=== PATIENT | male | born 1945 | race Caucasian/White ===

== ENCOUNTER 2018-03-26 20:08 | Inpatient (IN) | payer MEDICARE, OTHER ==
[2018-03-26 20:41] LABS: BASO # 0.1 10^3/uL (0.0-0.2); BASO % 0.9 % (0.0-1.0); EOS # 0.7 10^3/uL (0.0-0.50); EOS % 6.9 % (0.0-3.0); HEMATOCRIT 44.9 % (42.0-52.0); HEMOGLOBIN 14.3 g/dl (13.5-17.5); IMMATURE GRANULOCYTE % 0.4 % (0-3.0); LYMPH # 2.8 10^3/uL (1.5-4.5); LYMPH % 28.6 % (24.0-44.0); MEAN CORPUSCULAR HEMOGLOBIN 30.7 pg (27.0-33.0); MEAN CORPUSCULAR HGB CONC 31.8 g/dl (32.0-36.5); MEAN CORPUSCULAR VOLUME 96.4 fl (80.0-96.0); MONO # 0.7 10^3/uL (0.0-0.8); NEUTROPHILS # 5.5 10^3/uL (1.8-7.7); NEUTROPHILS % 56.2 % (36.0-66.0); PLATELET COUNT, AUTOMATED 216 10^3/uL (150-450); RED BLOOD COUNT 4.66 10^6/uL (4.30-6.10); WHITE BLOOD COUNT 9.8 10^3/uL (4.0-10.0)
[2018-03-26 20:51] LABS: INR 1.57
[2018-03-26 20:52] LABS: PARTIAL THROMBOPLASTIN TIME 45.5 SECONDS (25.4-37.6)
[2018-03-26 21:16] LABS: ANION GAP 6 MEQ/L (8-16); BLOOD UREA NITROGEN 25 MG/DL (7-18); CALCIUM LEVEL 8.6 MG/DL (8.8-10.2); CARBON DIOXIDE LEVEL 29 MEQ/L (21-32); CHLORIDE LEVEL 105 MEQ/L (98-107); CPK CREATINE PHOSPHOKINASE 78 U/L (39-308); CREATININE FOR GFR 1.37 MG/DL (0.70-1.30); GLOMERULAR FILTRATION RATE 54.1 (>42); GLUCOSE, FASTING 111 MG/DL (70-100); MAGNESIUM LEVEL 1.3 MG/DL (1.8-2.4); MB/CK RELATIVE INDEX 2.44 (< OR =4); POTASSIUM SERUM 4.9 MEQ/L (3.5-5.1); SODIUM LEVEL 140 MEQ/L (136-145); TROPONIN I < 0.02 NG/ML (< 0.10)
[2018-03-26] MEDS: MAGNESIUM OXIDE 400 MG TAB (MAG-OX) PO (22:00)
[2018-03-26] MEDS: MAG SULF 1GM/100ML (MAG RUN) 1 GM in APPROPRIATE DILUENT 1 EA IV (22:00)
[2018-03-27] MEDS ORDERED: ATROPINE SULF 1MG/10ML SYRINGE (J0461) As Ordered (01:08)
[2018-03-27 02:34] LABS: CPK CREATINE PHOSPHOKINASE 73 U/L (39-308); MB/CK RELATIVE INDEX 2.05 (< OR =4); TROPONIN I < 0.02 NG/ML (< 0.10)
[2018-03-27 05:04] LABS: HEMATOCRIT 41.7 % (42.0-52.0); HEMOGLOBIN 13.4 g/dl (13.5-17.5); MEAN CORPUSCULAR HGB CONC 32.1 g/dl (32.0-36.5); MEAN CORPUSCULAR VOLUME 93.5 fl (80.0-96.0); PLATELET COUNT, AUTOMATED 195 10^3/uL (150-450); RED BLOOD COUNT 4.46 10^6/uL (4.30-6.10); RED CELL DISTRIBUTION WIDTH 12.7 % (11.5-14.5); WHITE BLOOD COUNT 9.9 10^3/uL (4.0-10.0)
[2018-03-27 05:28] LABS: ANION GAP 7 MEQ/L (8-16); BLOOD UREA NITROGEN 26 MG/DL (7-18); CALCIUM LEVEL 8.2 MG/DL (8.8-10.2); CARBON DIOXIDE LEVEL 28 MEQ/L (21-32); CHLORIDE LEVEL 107 MEQ/L (98-107); CREATININE FOR GFR 1.41 MG/DL (0.70-1.30); GLOMERULAR FILTRATION RATE 52.3 (>42); GLUCOSE, FASTING 90 MG/DL (70-100); MAGNESIUM LEVEL 1.5 MG/DL (1.8-2.4); POTASSIUM SERUM 4.7 MEQ/L (3.5-5.1); SODIUM LEVEL 142 MEQ/L (136-145)
[2018-03-27] MEDS: MAGNESIUM OXIDE 400 MG TAB (MAG-OX) PO (06:21)
[2018-03-27] MEDS: MAG SULF 1GM/100ML (MAG RUN) 1 GM in APPROPRIATE DILUENT 1 EA IV (06:21)
[2018-03-27] MEDS: LR 1,000 ML IV (07:30)
[2018-03-27] MEDS ORDERED: DEXTROSE 50% 50 ML SYRINGE IV (07:45)
[2018-03-27] MEDS ORDERED: GLUCOSE 4 GM CHEW TABLET PO (07:45)
[2018-03-27] MEDS ORDERED: GLUCAGON FOR INJ 1 MG VIAL (J1610) SC (07:45)
[2018-03-27] MEDS ORDERED: DOPamine 400 MG/500 ML BAG IN D5W (800MCG/ML) (J1265) As Ordered (08:28)
[2018-03-27] MEDS: DOPamine HCL 400 MG in APPROPRIATE DILUENT 1 EA IV (08:39)
[2018-03-27 08:43] LABS: CPK CREATINE PHOSPHOKINASE 79 U/L (39-308); TROPONIN I < 0.02 NG/ML (< 0.10)
[2018-03-27 11:27] LABS: BEDSIDE GLUCOSE 112 MG/DL (83-110)
[2018-03-27] MEDS: OMEGA-3 1000MG CAPSULE PO (11:28)
[2018-03-27] MEDS: ALLOPURINOL 300 MG TAB PO (11:28)
[2018-03-27] MEDS: OMEPRAZOLE 20 MG CAP PO (11:28)
[2018-03-27] MEDS: HumaLOG INSULIN (NovoLOG) PER UNIT SC ×3 (11:34→21:25)
[2018-03-27] MEDS ORDERED: HumaLOG INSULIN (NovoLOG) PER UNIT SC (12:00)
[2018-03-27 15:15] LABS: ANION GAP 7 MEQ/L (8-16); BLOOD UREA NITROGEN 22 MG/DL (7-18); CARBON DIOXIDE LEVEL 28 MEQ/L (21-32); CHLORIDE LEVEL 106 MEQ/L (98-107); CPK CREATINE PHOSPHOKINASE 70 U/L (39-308); CREATININE FOR GFR 1.13 MG/DL (0.70-1.30); GLOMERULAR FILTRATION RATE > 60.0 (>42); GLUCOSE, FASTING 115 MG/DL (70-100); MAGNESIUM LEVEL 1.8 MG/DL (1.8-2.4); MB/CK RELATIVE INDEX 1.86 (< OR =4); POTASSIUM SERUM 4.2 MEQ/L (3.5-5.1); SODIUM LEVEL 141 MEQ/L (136-145); TROPONIN I < 0.02 NG/ML (< 0.10)
[2018-03-27 16:38] LABS: BEDSIDE GLUCOSE 100 MG/DL (83-110)
[2018-03-27 21:09] LABS: BEDSIDE GLUCOSE 122 MG/DL (83-110)
[2018-03-27] MEDS: LATANOPROST 0.005% OPHTH SOLN 2.5 ML OU (21:25)
[2018-03-28 05:05] LABS: HEMATOCRIT 44.8 % (42.0-52.0); HEMOGLOBIN 14.7 g/dl (13.5-17.5); MEAN CORPUSCULAR HEMOGLOBIN 30.7 pg (27.0-33.0); MEAN CORPUSCULAR HGB CONC 32.8 g/dl (32.0-36.5); MEAN CORPUSCULAR VOLUME 93.5 fl (80.0-96.0); PLATELET COUNT, AUTOMATED 186 10^3/uL (150-450); RED BLOOD COUNT 4.79 10^6/uL (4.30-6.10); RED CELL DISTRIBUTION WIDTH 12.5 % (11.5-14.5); WHITE BLOOD COUNT 12.1 10^3/uL (4.0-10.0)
[2018-03-28 05:20] LABS: INR 1.11; PROTHROMBIN TIME 14.4 SECONDS (12.1-14.4)
[2018-03-28 05:24] LABS: MAGNESIUM LEVEL 1.5 MG/DL (1.8-2.4)
[2018-03-28 05:25] LABS: ALBUMIN 3.6 GM/DL (3.2-5.2); ALBUMIN/GLOBULIN RATIO 1.03 (1.00-1.93); ALKALINE PHOSPHATASE 57 U/L (45-117); ALT/SGPT 18 U/L (12-78); ANION GAP 8 MEQ/L (8-16); AST/SGOT 11 U/L (7-37); BILIRUBIN,TOTAL 1.4 MG/DL (0.2-1.0); BLOOD UREA NITROGEN 17 MG/DL (7-18); CALCIUM LEVEL 9.2 MG/DL (8.8-10.2); CARBON DIOXIDE LEVEL 28 MEQ/L (21-32); CHLORIDE LEVEL 104 MEQ/L (98-107); CREATININE FOR GFR 0.97 MG/DL (0.70-1.30); GLOMERULAR FILTRATION RATE > 60.0 (>42); GLUCOSE, FASTING 110 MG/DL (70-100); POTASSIUM SERUM 4.2 MEQ/L (3.5-5.1); SODIUM LEVEL 140 MEQ/L (136-145); TOTAL PROTEIN 7.1 GM/DL (6.4-8.2)
[2018-03-28] MEDS: MAG SULF 1GM/100ML (MAG RUN) 1 GM in APPROPRIATE DILUENT 1 EA IV (06:07)
[2018-03-28] MEDS: HumaLOG INSULIN (NovoLOG) PER UNIT SC ×4 (07:30→20:38)
[2018-03-28] MEDS: OMEGA-3 1000MG CAPSULE PO (09:43)
[2018-03-28] MEDS: OMEPRAZOLE 20 MG CAP PO (09:43)
[2018-03-28] MEDS: ALLOPURINOL 300 MG TAB PO (09:43)
[2018-03-28 12:11] LABS: BEDSIDE GLUCOSE 114 MG/DL (83-110)
[2018-03-28] MEDS: LISINOPRIL 20 MG TAB PO (14:24)
[2018-03-28 17:28] LABS: BEDSIDE GLUCOSE 89 MG/DL (83-110)
[2018-03-28] MEDS: RIVAROXABAN 20 MG TAB (XARELTO) PO (17:58)
[2018-03-28 20:34] LABS: BEDSIDE GLUCOSE 96 MG/DL (83-110)
[2018-03-28] MEDS: LATANOPROST 0.005% OPHTH SOLN 2.5 ML OU (20:40)
[2018-03-29 05:07] LABS: HEMOGLOBIN 14.8 g/dl (13.5-17.5); MEAN CORPUSCULAR HEMOGLOBIN 30.7 pg (27.0-33.0); MEAN CORPUSCULAR HGB CONC 32.9 g/dl (32.0-36.5); MEAN CORPUSCULAR VOLUME 93.4 fl (80.0-96.0); PLATELET COUNT, AUTOMATED 188 10^3/uL (150-450); RED BLOOD COUNT 4.82 10^6/uL (4.30-6.10); RED CELL DISTRIBUTION WIDTH 12.7 % (11.5-14.5)
[2018-03-29 05:19] LABS: INR 1.62; PROTHROMBIN TIME 19.5 SECONDS (12.1-14.4)
[2018-03-29 05:35] LABS: ALBUMIN 3.3 GM/DL (3.2-5.2); ALBUMIN/GLOBULIN RATIO 0.97 (1.00-1.93); ALKALINE PHOSPHATASE 57 U/L (45-117); ALT/SGPT 18 U/L (12-78); ANION GAP 7 MEQ/L (8-16); AST/SGOT 12 U/L (7-37); BILIRUBIN,TOTAL 1.2 MG/DL (0.2-1.0); BLOOD UREA NITROGEN 14 MG/DL (7-18); CALCIUM LEVEL 8.9 MG/DL (8.8-10.2); CARBON DIOXIDE LEVEL 30 MEQ/L (21-32); CHLORIDE LEVEL 105 MEQ/L (98-107); CREATININE FOR GFR 1.13 MG/DL (0.70-1.30); GLOMERULAR FILTRATION RATE > 60.0 (>42); GLUCOSE, FASTING 112 MG/DL (70-100); MAGNESIUM LEVEL 1.7 MG/DL (1.8-2.4); POTASSIUM SERUM 4.2 MEQ/L (3.5-5.1); SODIUM LEVEL 142 MEQ/L (136-145); TOTAL PROTEIN 6.7 GM/DL (6.4-8.2)
[2018-03-29] MEDS: HumaLOG INSULIN (NovoLOG) PER UNIT SC ×4 (07:30→20:35)
[2018-03-29] MEDS: MAG SULF 1GM/100ML (MAG RUN) 1 GM in APPROPRIATE DILUENT 1 EA IV (08:52)
[2018-03-29] MEDS: ALLOPURINOL 300 MG TAB PO (08:53)
[2018-03-29] MEDS: OMEGA-3 1000MG CAPSULE PO (08:53)
[2018-03-29] MEDS: OMEPRAZOLE 20 MG CAP PO (08:53)
[2018-03-29] MEDS: LISINOPRIL 20 MG TAB PO (08:53)
[2018-03-29 12:15] LABS: BEDSIDE GLUCOSE 107 MG/DL (83-110)
[2018-03-29 16:44] LABS: BEDSIDE GLUCOSE 97 MG/DL (83-110)
[2018-03-29] MEDS: RIVAROXABAN 20 MG TAB (XARELTO) PO (17:21)
[2018-03-29] MEDS: LATANOPROST 0.005% OPHTH SOLN 2.5 ML OU (20:35)
[2018-03-29 20:37] LABS: BEDSIDE GLUCOSE 116 MG/DL (83-110)
[2018-03-30 05:57] LABS: HEMATOCRIT 46.4 % (42.0-52.0); HEMOGLOBIN 15.2 g/dl (13.5-17.5); MEAN CORPUSCULAR HEMOGLOBIN 30.6 pg (27.0-33.0); MEAN CORPUSCULAR HGB CONC 32.8 g/dl (32.0-36.5); MEAN CORPUSCULAR VOLUME 93.4 fl (80.0-96.0); PLATELET COUNT, AUTOMATED 215 10^3/uL (150-450); RED BLOOD COUNT 4.97 10^6/uL (4.30-6.10); RED CELL DISTRIBUTION WIDTH 12.8 % (11.5-14.5)
[2018-03-30 06:14] LABS: INR 1.59; PROTHROMBIN TIME 19.2 SECONDS (12.1-14.4)
[2018-03-30 06:23] LABS: ALBUMIN 3.4 GM/DL (3.2-5.2); ALBUMIN/GLOBULIN RATIO 0.97 (1.00-1.93); ALKALINE PHOSPHATASE 60 U/L (45-117); ALT/SGPT 21 U/L (12-78); ANION GAP 7 MEQ/L (8-16); AST/SGOT 12 U/L (7-37); BLOOD UREA NITROGEN 15 MG/DL (7-18); CALCIUM LEVEL 8.9 MG/DL (8.8-10.2); CARBON DIOXIDE LEVEL 26 MEQ/L (21-32); CHLORIDE LEVEL 107 MEQ/L (98-107); CREATININE FOR GFR 1.11 MG/DL (0.70-1.30); GLOMERULAR FILTRATION RATE > 60.0 (>42); GLUCOSE, FASTING 104 MG/DL (70-100); MAGNESIUM LEVEL 1.8 MG/DL (1.8-2.4); POTASSIUM SERUM 4.2 MEQ/L (3.5-5.1); SODIUM LEVEL 140 MEQ/L (136-145); TOTAL PROTEIN 6.9 GM/DL (6.4-8.2)
[2018-03-30] MEDS: OMEPRAZOLE 20 MG CAP PO (08:36)
[2018-03-30] MEDS: OMEGA-3 1000MG CAPSULE PO (08:36)
[2018-03-30] MEDS: ALLOPURINOL 300 MG TAB PO (08:36)
[2018-03-30] MEDS: LISINOPRIL 20 MG TAB PO (08:36)
[2018-03-30] MEDS: HumaLOG INSULIN (NovoLOG) PER UNIT SC ×4 (08:37→21:00)
[2018-03-30 12:06] LABS: BEDSIDE GLUCOSE 68 MG/DL (83-110)
[2018-03-30 17:40] LABS: BEDSIDE GLUCOSE 115 MG/DL (83-110)
[2018-03-30] MEDS: RIVAROXABAN 20 MG TAB (XARELTO) PO (18:10)
[2018-03-30] MEDS: LATANOPROST 0.005% OPHTH SOLN 2.5 ML OU (21:16)
[2018-03-30 21:19] LABS: BEDSIDE GLUCOSE 108 MG/DL (83-110)
[2018-03-31 05:52] LABS: HEMATOCRIT 45.7 % (42.0-52.0); HEMOGLOBIN 14.8 g/dl (13.5-17.5); MEAN CORPUSCULAR HEMOGLOBIN 30.6 pg (27.0-33.0); MEAN CORPUSCULAR HGB CONC 32.4 g/dl (32.0-36.5); MEAN CORPUSCULAR VOLUME 94.6 fl (80.0-96.0); PLATELET COUNT, AUTOMATED 204 10^3/uL (150-450); RED BLOOD COUNT 4.83 10^6/uL (4.30-6.10); RED CELL DISTRIBUTION WIDTH 12.5 % (11.5-14.5)
[2018-03-31 05:59] LABS: INR 1.48; PROTHROMBIN TIME 18.2 SECONDS (12.1-14.4)
[2018-03-31 06:20] LABS: ALBUMIN 3.2 GM/DL (3.2-5.2); ALBUMIN/GLOBULIN RATIO 1.03 (1.00-1.93); ALKALINE PHOSPHATASE 56 U/L (45-117); ALT/SGPT 22 U/L (12-78); ANION GAP 8 MEQ/L (8-16); AST/SGOT 12 U/L (7-37); BILIRUBIN,TOTAL 0.7 MG/DL (0.2-1.0); BLOOD UREA NITROGEN 18 MG/DL (7-18); CALCIUM LEVEL 8.8 MG/DL (8.8-10.2); CARBON DIOXIDE LEVEL 27 MEQ/L (21-32); CHLORIDE LEVEL 108 MEQ/L (98-107); CREATININE FOR GFR 1.13 MG/DL (0.70-1.30); GLOMERULAR FILTRATION RATE > 60.0 (>42); GLUCOSE, FASTING 106 MG/DL (70-100); MAGNESIUM LEVEL 1.7 MG/DL (1.8-2.4); POTASSIUM SERUM 3.9 MEQ/L (3.5-5.1); SODIUM LEVEL 143 MEQ/L (136-145); TOTAL PROTEIN 6.3 GM/DL (6.4-8.2)
[2018-03-31] MEDS: OMEPRAZOLE 20 MG CAP PO (07:38)
[2018-03-31] MEDS: HumaLOG INSULIN (NovoLOG) PER UNIT SC (07:38)
[2018-03-31] MEDS: LISINOPRIL 20 MG TAB PO (07:39)
[2018-03-31] MEDS: ALLOPURINOL 300 MG TAB PO (07:39)
== END 2018-03-31 12:54 | disposition home or self-care (01) | DRG 309 ==
LOC: M PCU 03-29 14:03 → M ICU 03-27 01:02 → M ED 20:08 → M ED INP 23:42
DX: R00.1 Bradycardia, unspecified (principal); N17.9 Acute kidney failure, unspecified; I48.1 Persistent atrial fibrillation; I48.2 Chronic atrial fibrillation; E83.42 Hypomagnesemia; I10 Essential (primary) hypertension; G47.33 Obstructive sleep apnea (adult) (pediatric); E11.9 Type 2 diabetes mellitus without complications; M10.9 Gout, unspecified; I45.10 Unspecified right bundle-branch block; Z79.01 Long term (current) use of anticoagulants; Z79.84 Long term (current) use of oral hypoglycemic drugs; Z79.899 Other long term (current) drug therapy; Z90.49 Acquired absence of other specified parts of digestive tract; T44.7X5A Adverse effect of beta-adrenoreceptor antagonists, initial encounter

== ENCOUNTER 2018-06-29 12:34 | Day surgery (SDC) | payer MEDICARE, OTHER ==
[~2018-06-29] VITALS: Ht 182.9 cm; Wt 112.1 kg
[2018-06-29] VITALS (11 sets, daily range): BP systolic 127–164; BP diastolic 56–94
[2018-06-29] MEDS: ALLOPURINOL 300 MG TAB PO SCH (09:00)
[~2018-06-29 12:34] MED LIST: ACET500T15 PO; ALLO100T PO; ASPI325T PO; BISO10TA6 PO; BISO5TAB5 PO; BUME1TAB3 PO; BUME2TAB3 PO; CIAL20TA PO; COUM2.5T17 PO; FISH1000; FISH1000 PO; HYDR25TAB PO; IBUP200C25 PO; K-TA10TA PO; LATA5OPD OU; LISI-538 PO; LISI20TA3 PO; LYRI75CA PO; MAGN64TASA PO; METF500T13 PO; METF750T PO; OMEP20CA3 PO; OMEP40CA2 PO; PERCOCET PO; PRIL20CA9 PO; TYLE167L PO; XALA0.007 OU; XARE20TA PO; ZYLO300T6 PO; latanoprost OU
[2018-06-29] MEDS ORDERED: LR 1,000 ML IV SCH ×2 (12:45→15:45)
[2018-06-29] MEDS ORDERED: LIDOCAINE 1% MDV 20ML VIAL SC PRN (13:00)
[2018-06-29] MEDS ORDERED: LIDOCAINE 1% SDV INJ 30 ML VIAL As Ordered ONE (13:14)
[2018-06-29] MEDS ORDERED: BACITRACIN PWD 50,000 UNITS VIAL As Ordered ONE (13:15)
[2018-06-29] MEDS ORDERED: AMIODARONE 150MG/3ML INJ (J0282) As Ordered ONE (13:15)
[2018-06-29] MEDS ORDERED: ISOVUE-300 61% 50ML VIAL (Q9967) As Ordered ONE (13:15)
[2018-06-29 13:57] LABS: INR 1.06
[2018-06-29 13:58] LABS: PARTIAL THROMBOPLASTIN TIME 37.6 SECONDS (25.4-37.6)
[2018-06-29] MEDS ORDERED: VANCOMYCIN 1000 MG/20 ML VIAL (J3370) As Ordered ONE (14:06)
[2018-06-29] MEDS ORDERED: fentaNYL 100 MCG/2 ML INJECTION (J3010) As Ordered ONE (14:35)
[2018-06-29] MEDS ORDERED: PROPOFOL 200 MG/20 ML VIAL As Ordered ONE (14:35)
[2018-06-29] MEDS ORDERED: MIDAZOLAM INJ 2 MG/2 ML VIAL (J2250) As Ordered ONE (14:35)
[2018-06-29] MEDS ORDERED: LIDOCAINE 2% INJ 100 MG/5 ML SDV (FOR ANES.) As Ordered ONE (14:35)
[2018-06-29] MEDS ORDERED: VANCOMYCIN HCL 1,000 MG, VIAL MATE ADAPTER 1 EACH in D5W 250 ML IV ONE (15:00)
[2018-06-29] MEDS ORDERED: PERCOCET 5MG/325MG TAB PO PRN (15:45)
[2018-06-29] MEDS ORDERED: DEXTROSE 50% 50 ML SYRINGE IV PRN (15:45)
[2018-06-29] MEDS ORDERED: GLUCAGON FOR INJ 1 MG VIAL (J1610) SC PRN (15:45)
[2018-06-29] MEDS ORDERED: GLUCOSE 4 GM CHEW TABLET PO PRN (15:45)
[2018-06-29] MEDS: ACETAMINOPHEN TAB 650MG DOSE (2X325MG) PO PRN ×2 (16:11→21:16)
--- NOTE | 2018-06-29 16:22 | REP ---
Portable chest x-ray: Sitting AP view: History: Post pacemaker implant. Comparison study: November 09, 2013. June 27, 2018 prior chest x-ray is reviewed from [facility]. Findings: Today's view is exposed at a low level of inspiration and a lordotic angle. A left subclavian transvenous pacemaker is seen. There is no evidence of pneumothorax. Pulmonary vasculature appears congested and heart is somewhat enlarged partly due to technique. Electronically Signed by Sathish Pena MD 06/29/2018 07:42 P
[2018-06-29] MEDS: CARVedilol 6.25 MG TAB PO SCH (17:24)
[2018-06-29] MEDS: HumaLOG INSULIN (NovoLOG) PER UNIT SC SCH (17:25)
[2018-06-29] MEDS ORDERED: SLF 3 ML SYR IV PRN (17:45)
--- NOTE | 2018-06-29 19:14 | RO ---
DATE OF PROCEDURE: 06/29/2018 PROCEDURE: Implantation of single chamber ventricular demand pacemaker. IMPLANTING CHAIN MACHINE OPERATOR: Dr. Yeison Ibanez ANESTHESIOLOGIST: Dr. Osman PREOPERATIVE DIAGNOSIS: 1. Intermittent high-grade AV block with near syncope. 2. Chronic atrial fibrillation. 3. Bifascicular block - left posterior hemiblock and right bundle branch block. 4. Hypertensive heart disease (benign with heart failure). POSTOPERATIVE DIAGNOSIS: 1. Intermittent high-grade AV block with near syncope. 2. Chronic atrial fibrillation. 3. Bifascicular block - left posterior hemiblock and right bundle branch block. 4. Hypertensive heart disease (benign with heart failure). TYPE OF ANESTHESIA: Monitored local anesthesia. CLINICAL SUMMARY: This 72-year-old father of one, retired resident of [place], [place] is well-known to our cardiology practice with hypertensive heart disease complicated by abnormal EKG, chronic atrial fibrillation, and heart failure (diastolic dysfunction). He presented recently to our office and had a Holter monitor performed May 12, 2018 because of intermittent lightheadedness. This study showed underlying atrial fibrillation with controlled average ventricular response off negative chronotropic therapy. However, there were occasional markedly slow ventricular responses during wakeful hours with heart rates as low as 31 beats per minute and some 752 pauses greater than 2 seconds with 10 pauses greater than 3 seconds and longest pause of 3.5 seconds. He also had an average of 58 isolated PVCs per hour. June 27, 2018 he presented to our office complaining of increasing exercise intolerance, fatigue and lightheaded spells. In light of these symptoms. We arranged for semielective implantation of permanent ventricular demand pacemaker. This pleasant obese elderly male lay comfortably with the head of bed elevated 30 degrees. Resting heart rate 55 bpm and irregular, blood pressure 152/68 sitting with legs dependent respiratory rate 18. BMI 34.2. There was no pallor or cyanosis. Normal oral moisture. Jugular veins were 3 cm above the sternal angle. Increased anteroposterior chest diameter with symmetrical air entry over both lung baugh. Slight prolongation of expiration but no audible wheeze. Apical impulse not palpable. Heart sounds were distant with widely split S2. No audible gallop or murmur. Normal carotid upstroke but variable volume related to his arrhythmia. No bruits. Upper extremity pulses were symmetrical and normal, femoral pulses were symmetrically decreased, pedal pulses were difficult to palpate. Abdomen was obese and soft. EKG June 27, 2018 showed underlying atrial fibrillation with a slow ventricular response averaging 55 bpm with bifascicular block - left posterior hemiblock and right bundle branch block as well as primary ST / T-wave abnormalities other than a slower rate this was unchanged from April 07, 2018. Blood work April 14, 2018 showed electrolyte balance with BUN 17, creatinine 1.0, glucose 112. Blood work June 27 showed similar electrolytes and glucose with complete blood count. A hemoglobin of 13. Normal white blood cell count and platelet count. BNP level was only 80. PT / INR today was normal off Xarelto for 1 day. DESCRIPTION OF PROCEDURE: In the fasting state following informed consent and the vancomycin 1 gram IV infusion over 1 hour preop the patient was taken to the operating theater. Numerous skin electrodes were applied to facilitate continuous electrocardiographic monitoring. The left subclavian region was prepped and draped in usual fashion and the skin was infiltrated with 1% Xylocaine. The left axillary vein was catheterized using the micropuncture technique. A 5-cm linear incision was made several centimeters below and parallel to the left clavicle. Dissection was carried down to the level of the pectoralis fascia and the pocket was fashioned below the level of the incision line. A single bipolar screw-in active fixation steroid eluting pacing lead was then positioned under fluoroscopic electrocardiographic control to the high right ventricular outflow tract. Right ventricular lead ([employer] model number [id number], serial number [id number]) measurements were focal stimulation threshold 0.4, V / 0.4 ms/ impedance 753 ohms. The R wave amplitude measured 22.0 mV. This lead was secured with a day with a sleeve sutured at the insertion site. It was then connected to a single chamber pulse generator ([employer] - Assurity MRI compatible model number [id number], serial number [id number]) and appropriate, VVI pacing was documented. Te pulse generator was placed in the pocket and secured in position with a suture through the upper right-hand corner of the epoxy header. The subcutaneous tissues were approximated using a running chromic suture and skin was closed using maira. Dry dressing was applied and the patient was returned to the recovery room in good condition. No apparent complications. ESTIMATED BLOOD LOSS: 10 ml. Postoperative portable upright chest x-ray confirmed appropriate lead position with no pneumothorax. His EKG showed underlying atrial fibrillation with controlled ventricular response and appropriate VVI pacing. The patient will be monitored overnight on telemetry and will receive an additional dose of vancomycin 1 gram IV infusion 12 hours following his first dose. Now that his pacemaker is in position carvedilol 12.5 mg by mouth twice a day will be started in light of his hypertension and diabetes mellitus. His lisinopril has been switched for this time being 210 mg by mouth twice a day hold for systolic blood pressure less than 130. Bumex 1 mg daily with KCL 10 mEq daily and magnesium 64 1 tablet twice a day have also been resumed. His metformin ER 750 mg once daily, allopurinol 300 mg by mouth daily, omeprazole 40 mg daily and latanoprost 0.005% eye drops each eye 1 drop daily have also been resumed. His Xarelto oral anticoagulation will be withheld for an additional 24 hours. We anticipate his discharge tomorrow morning following a PA and left lateral chest x-ray and EKG. JENNIFER
[2018-06-29] MEDS ORDERED: HumaLOG INSULIN (NovoLOG) PER UNIT SC SCH (21:00)
[2018-06-29] MEDS ORDERED: LATANOPROST 0.005% OPHTH SOLN 2.5 ML OU SCH (21:00)
[2018-06-29] MEDS: DOCUSATE SODIUM 100 MG CAP PO SCH (21:16)
[2018-06-29] MEDS: LISINOPRIL 10 MG TAB PO SCH (21:17)
[2018-06-29] MEDS: MAGNESIUM OXIDE 400 MG TAB (MAG-OX) PO SCH (21:17)
[2018-06-29] MEDS: SLF 3 ML SYR IV SCH (21:18)
[2018-06-30] MEDS: CARVedilol 6.25 MG TAB PO SCH ×4 (00:07→17:41)
[2018-06-30] MEDS ORDERED: VANCOMYCIN HCL 1,000 MG, VIAL MATE ADAPTER 1 EACH in D5W 250 ML IV ONE (02:00)
[2018-06-30 04:00] VITALS: BP 149/74
[2018-06-30] MEDS: ACETAMINOPHEN TAB 650MG DOSE (2X325MG) PO PRN (04:48)
[2018-06-30] MEDS: SLF 3 ML SYR IV SCH ×2 (05:49→11:53)
[2018-06-30 08:00] VITALS: BP 120/68
[2018-06-30] MEDS: DOCUSATE SODIUM 100 MG CAP PO SCH (08:12)
[2018-06-30] MEDS: HumaLOG INSULIN (NovoLOG) PER UNIT SC SCH ×3 (08:12→16:29)
[2018-06-30] MEDS: ALLOPURINOL 300 MG TAB PO SCH (08:12)
[2018-06-30] MEDS: LISINOPRIL 10 MG TAB PO SCH (08:13)
[2018-06-30] MEDS: MAGNESIUM OXIDE 400 MG TAB (MAG-OX) PO SCH (08:13)
--- NOTE | 2018-06-30 08:35 | REP ---
Chest x-ray: Two views. History: Pacemaker placement. Comparison chest x-ray: June 29, 2018 and November 09, 2013. Findings: A unipolar pacemaker is seen in place via the left subclavian vein region. An intact right heart lead is noted. Heart is not enlarged. Pleural angles are sharp. There is no evidence of pneumothorax. No infiltrate is seen. The aorta is tortuous as before. Pulmonary vasculature is not increased. EKG electrodes are seen. Impression: Unipolar pacemaker in the right heart via the left side. No complication is identified. Electronically Signed by Sathish Pena MD 06/30/2018 08:27 A
[2018-06-30] MEDS ORDERED: POTASSIUM CHLORIDE 10 MEQ SR TABLET PO SCH (09:00)
[2018-06-30] MEDS ORDERED: OMEPRAZOLE 20 MG CAP PO SCH (09:00)
[2018-06-30] MEDS ORDERED: BUMETANIDE 1 MG TAB PO SCH ×3 (09:00)
[2018-06-30 12:00] VITALS: BP 127/66
--- NOTE | 2018-06-30 12:14 | ECGEPIP ---
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
[2018-06-30 16:00] VITALS: BP 171/80
[2018-06-30] MEDS ORDERED: CARV6.25 PO (17:39)
[2018-06-30 17:41] VITALS: BP 171/80
[2018-06-30] MEDS ORDERED: metFORMIN XR 750 MG TAB PO SCH (18:00)
--- NOTE | 2018-06-30 19:52 | IPN ---
CARDIOLOGY PROGRESS NOTE DATE: 06/30/2018 SUBJECTIVE The patient has been up in the room ambulating without lightheadedness or faintness. Has had only minor incisional discomfort. Unaware of his heart action. Tolerating his medications without lightheadedness or shortness of breath. Objective: This pleasant obese barrel-chested elderly male lay comfortably. Heart rate 64 beats per minute and regular with irregularities. Blood pressure 127/66 sitting, respiratory rate 16, O2 saturation 95% on room air. Afebrile. His weight is stable. Normal oral moisture. Trachea midline. Thyroid not enlarged. Jugular veins 3 cm above the sternal angle. Increased anteroposterior chest diameter with symmetrical air entry over both lung baugh, well-healing left subclavian pacer incision with only minor ecchymosis, but no swelling or discharge. Apical impulse not palpable. Heart sounds distant and variable. No current dependent edema. Chest x-ray PA and left lateral study was reviewed independently this morning and shows obvious cardiomegaly with unfolded thoracic aorta. Pulmonary vasculature appeared to be a normal. No infiltrate or pleural effusion. Pulse generator left subclavian region with single bipolar right ventricular pacing lead terminating in the mid right ventricular septum. satellite project site monitor: This shows underlying atrial fibrillation with controlled ventricular response. Spontaneous alternating with ventricular paced complexes. Appropriate VVI pacing was documented. Complete pacemaker interrogation: [employer] - Assurity, model number 1272. MRI compatible. Excellent intracardiac electrograms with R-wave measuring greater than 12.0 mV. Pacing threshold was remarkably only 0.25 volts at 0.4 milliseconds. We were able to activate auto capture function and with this his estimated battery longevity is 12 years. FINAL DIAGNOSIS 1. Heart failure (diastolic / chronic). 2. Hypertensive heart disease (benign with heart failure). 3. Chronic atrial fibrillation. 4. Abnormal EKG with underlying bifascicular block - left posterior hemiblock and right bundle branch block. 5. Intermittent high-grade AV block with near syncope - now with single chamber demand pacemaker in situ. The patient can be discharged home at this point. DIETARY MEASURES AND ACTIVITY: We have requested that he resume his modest salt and fluid intake restriction and avoid carbohydrates. He was instructed to perform activities of daily living except for light activity with his left arm and avoid getting his incision wet until his maira are removed in our office. FOLLOW-UP APPOINTMENTS The patient has a clinic visit for blood pressure and wound check with staple removal for July 06, 2018 at 09:15 a.m.. MEDICATIONS The patient is currently on - carvedilol 6.25 mg twice a day - lisinopril 20 mg daily - Mag-64 1 tablet twice a day - KCl 10 mEq daily - Bumex 1 mg daily - metformin ER 750 mg daily - omeprazole 40 mg daily - allopurinol 300 mg daily - Xalatan eye drops 0.97098% 1 drop each eye at bedtime - His Xarelto 20 mg daily will be resumed tomorrow afternoon. We have encouraged him to contact us promptly for any abnormal swelling or discharge.
== END 2018-06-30 18:35 | disposition home or self-care (01) ==
LOC: M SDC 12:34 → M PCU 16:28 → UNDOADMIN 16:28 → M SDC 06-30 18:35 → UNDODISIN 06-30 18:35
PROVIDERS: ATTEND Internal Medicine Cardiovascular Disease
DX: I44.1 Atrioventricular block, second degree (principal); R55 Syncope and collapse; I48.2 Chronic atrial fibrillation; I45.2 Bifascicular block; I11.9 Hypertensive heart disease without heart failure; E78.00 Pure hypercholesterolemia, unspecified; E11.9 Type 2 diabetes mellitus without complications; M10.9 Gout, unspecified; K21.9 Gastro-esophageal reflux disease without esophagitis; R00.1 Bradycardia, unspecified; R06.02 Shortness of breath; R94.31 Abnormal electrocardiogram [ECG] [EKG]; G47.33 Obstructive sleep apnea (adult) (pediatric); M12.9 Arthropathy, unspecified; J44.9 Chronic obstructive pulmonary disease, unspecified; R06.83 Snoring; E66.8 Other obesity; Z88.1 Allergy status to other antibiotic agents; Z88.8 Allergy status to other drugs, medicaments and biological substances; Z79.899 Other long term (current) drug therapy; Z79.84 Long term (current) use of oral hypoglycemic drugs; Z79.01 Long term (current) use of anticoagulants; Z72.0 Tobacco use
CPT/HCPCS: 33208; 36415; 71045; 71046; 76000; 85610; 85730; 93005; C1786; C1898; J2250; J3010; J3370

== ENCOUNTER → 2018-08-25 | Outpatient (CLI) | payer MEDICARE, OTHER ==
[~2018-08-25] MED LIST changes: +CARV6.25 PO
--- NOTE | 2018-08-30 16:20 | SLEEPCENT ---
DATE OF PROCEDURE: 08/25/2018 ORDERED BY: Padma Lopez Nocturnal polysomnography was performed for evaluation of sleep physiology in this patient with a history of sleep apnea in the past. He has significant comorbidities of hypertension, reflux disease, diabetes, and obstructive lung disease. 9 hours and 4 minutes of data were reviewed. There were 334 minutes of sleep identified. Sleep latency was mildly prolonged at 48 minutes. Rapid eye movement (REM) latency was mildly prolonged at 152 minutes. Sleep architecture showed fragmentation. There were 4 REM cycles noted. Overall sleep efficiency was 63.6%. The electrocardiogram showed an irregular rhythm with variable focus. Average heart rate of 60 beats per minute. On closer inspection, the rhythm appeared to be atrial fibrillation. Heart rate ranged from 40 to 80 beats per minute. EEG showed normal waveforms for awake and sleep. There were 164 respiratory events identified of 10 seconds in duration or greater for an apnea-hypopnea index of 29.4. The events were primarily obstructive, not exclusive to sleep stage nor body posture. Arousals from respiratory events occurred 7.2 times per hour, oxygen desaturations were seen into the low 80s. Some limb activity but arousals were few and snoring was noted over the course of the study. IMPRESSION: Severe obstructive sleep apnea syndrome (G47.33). Apnea-hypopnea index 29.4. RECOMMENDATIONS: The patient should be encouraged to return to the sleep disorder center for pressure therapy. In the interim alcohol and sedative avoidance should be practiced and caution exercised during the operation of motor vehicles.
== END ==
LOC: M SLEEP 19:34
PROVIDERS: ATTEND Nurse Practitioner Adult Health
DX: G47.30 Sleep apnea, unspecified (principal)

== ENCOUNTER → 2018-09-09 | Outpatient (CLI) | payer MEDICARE, OTHER ==
--- NOTE | 2018-09-14 10:20 | SLEEPCENT ---
DATE OF PROCEDURE: 09/09/2018 ORDERING PROVIDER: Padma Lopez NP Nocturnal polysomnography was performed for the titration of pressure therapy in this patient with obstructive sleep apnea syndrome. Apnea-hypopnea index 29.4. For testing, a [employer] Simplus full-face mask of medium size was used, 4 cm of water pressure were applied to the circuit and the lights were extinguished. 8 hours and 17 minutes of data were reviewed. There were 356 minutes of sleep identified. Sleep latency was normal at 49 minutes. Rapid eye movement (REM) latency was normal at 86 minutes. Sleep architecture improved over the course of testing with optimal pressure therapy. There were three REM cycles noted. Overall sleep efficiency 75%. The electrocardiogram showed small complexes of supraventricular rhythm with an average heart rate of 60 beats per minute. Electroencephalogram (EEG) showed normal waveforms for awake and sleep. Respiratory events were fully palliated with C-PAP of pressure is +10. There was minimal limb activity. IMPRESSION: Obstructive sleep apnea syndrome (G47.33). RECOMMENDATIONS: Nightly use of pressure therapy 10 cm of water.
== END ==
LOC: M SLEEP 19:24
PROVIDERS: ATTEND Nurse Practitioner Adult Health
DX: G47.33 Obstructive sleep apnea (adult) (pediatric) (principal)

== ENCOUNTER 2019-04-13 10:36 | Day surgery (SDC) | payer MEDICARE, OTHER ==
[~2019-04-13] VITALS: Ht 180.3 cm; Wt 116.3 kg
[~2019-04-13 10:36] MED LIST changes: +ASPI-1 PO; -ASPI325T PO; +BALANCED SALT IRRIGATION SOLUTION 500ML BAG (FOR OR EYE MACHINE) As Ordered ONE; +BISO10TA10 PO; -BISO10TA6 PO; -BISO5TAB5 PO; +BISO5TAB9 PO; +CHLO125TA PO; +DUOVISC (0.50ML VISCOAT/0.55ML PROVISC) OPHTH KIT As Ordered ONE; +HYDR-2541 PO; +LATA0.0013 OU; -LATA5OPD OU; +LIDOCAINE 0.75%/EPINEPHRINE 0.025% IN BSS 0.8ML SYR INTRACAMERAL--OR ONLY As Ordered ONE; +LISI20TA20 PO; -LISI20TA3 PO; -METF750T PO; +METF750T36 PO; +OFLOXACIN 0.3 % (OCUFLOX) OPTH SOL 5ML OD ONE; -OMEP20CA3 PO; +OMEP20CA4 PO; -OMEP40CA2 PO; +OMEP40CA97 PO; +PHENYLEPHRINE 2.5% OPHTH SOL 2ML OD ONE; +POVIDONE-IODINE 5% OPHTH PREP SOL 30ML As Ordered ONE; +PROPARACAINE 0.5% OPHTH SOL 15ML OD ONE; +TROPICAMIDE 1% OPHTH SOLN 2ML OD ONE
[2019-04-13] MEDS ORDERED: MIDAZOLAM INJ 2 MG/2 ML VIAL (J2250) As Ordered ONE (11:57)
[2019-04-13] MEDS ORDERED: fentaNYL 100 MCG/2 ML INJECTION (J3010) As Ordered ONE (11:57)
[2019-04-13] MEDS ORDERED: DUOVISC (0.50ML VISCOAT/0.55ML PROVISC) OPHTH KIT As Ordered ONE ×2 (12:28→12:33)
[2019-04-13 13:15] VITALS: BP 127/89
[2019-04-13] MEDS ORDERED: ONDANSETRON 4MG/2ML VIAL (J2405) IV PRN (13:15)
--- NOTE | 2019-04-14 19:07 | RO ---
DATE OF PROCEDURE: 04/13/2019 PREOPERATIVE DIAGNOSIS: 1. Visually significant nuclear sclerotic cataract right eye. 2. Primary open angle glaucoma, moderate stage POSTOPERATIVE DIAGNOSIS: 1. Visually significant nuclear sclerotic cataract right eye. 2. Primary open angle glaucoma, moderate stage PROCEDURE: 1. Cataract extraction with use of phacoemulsification and placement of intraocular lens, AU00T0, 18.0 D, right eye. 2. Transluminal canal dilation with ab-interno trabeculotomy, OMNI device, 180 degrees counterclockwise SURGEON: Ward Branham DO MACHINE PLASTER MIXER: None. ANESTHESIA: Local with monitored anesthesia care (MAC). COMPLICATIONS: None. POSTOPERATIVE CONDITION: Stable. INDICATIONS FOR SURGERY: 1. Blurred vision affecting patients activities of daily living. DESCRIPTION OF PROCEDURE: The patient was seen in the preoperative area and properly identified. The correct operative eye was identified and marked. The patient received topical anesthetic, antibiotics, and topical dilating drops. The patient was then transferred to the operating room. The correct side was re-identified, and a time-out was performed. The eye was prepped and draped in a sterile fashion. The eyelids were isolated with Tegaderm tape, and the lids were held open with an adjustable speculum. A 1.0 mm paracentesis incision was made. Intraocular preservative-free Shugarcaine was then injected into the anterior chamber. Viscoelastic was then injected into the anterior chamber through the paracentesis. Using a 2.4 mm sharp-tipped keratome, the anterior chamber was entered via a temporal clear cornea incision. A continuous curvilinear capsulorrhexis was created with Utrata forceps. Hydrodissection was performed with balanced salt solution (BSS) on a blunt cannula until the nucleus was able to rotate freely. The crystalline lens was phacoemulsified and aspirated. Irrigation/aspiration was used to remove the cortical material. Cohesive viscoelastic was placed into the capsular bag to deepen it. The implant was placed into the capsular bag and allowed to unfold. Placement was confirmed by visualizing the anterior capsulorrhexis. Additional viscoelastic was placed inside the anterior chamber and on top of the cornea, the head was untaped and the microscope rotated to 45 degrees. The OMNI device was placed inside the eye, a gonioprism was used to visualize the anterior chamber. The OMNI catheter was placed inside the canal 180 degrees and then withdrawn. The catheter was reinserted and a goniotomy was performed. There was minimal bleeding and the device was withdrawn. Irrigation/aspiration was used to remove the viscoelastic. The clear corneal incision was hydrated with BSS on a blunt cannula. The lens was well positioned. The incisions were then tested for leaks and found to be negative. The eye was then palpated for appropriate pressure and adjusted accordingly with BSS. The eyelid speculum was then carefully removed. A shield was placed over the eye. The patient tolerated the procedure well and was discharged to the recovery unit in a stable condition. JENNIFER
== END 2019-04-13 13:34 | disposition home or self-care (01) ==
LOC: M SDC 10:36
PROVIDERS: ATTEND Ophthalmology
DX: H25.11 Age-related nuclear cataract, right eye (principal); H40.1112 Primary open-angle glaucoma, right eye, moderate stage; I48.91 Unspecified atrial fibrillation; I10 Essential (primary) hypertension; E78.5 Hyperlipidemia, unspecified; E11.9 Type 2 diabetes mellitus without complications; G47.30 Sleep apnea, unspecified; Z88.8 Allergy status to other drugs, medicaments and biological substances; Z79.899 Other long term (current) drug therapy; Z79.02 Long term (current) use of antithrombotics/antiplatelets
CPT/HCPCS: 65820; 66174; 66984; J2250; J3010; V2632

== ENCOUNTER 2019-04-27 08:16 | Day surgery (SDC) | payer MEDICARE, OTHER ==
[~2019-04-27] VITALS: Ht 180.3 cm; Wt 114.3 kg
[~2019-04-27 08:16] MED LIST changes: -OFLOXACIN 0.3 % (OCUFLOX) OPTH SOL 5ML OD ONE; +OFLOXACIN 0.3 % (OCUFLOX) OPTH SOL 5ML OS ONE; -PHENYLEPHRINE 2.5% OPHTH SOL 2ML OD ONE; +PHENYLEPHRINE 2.5% OPHTH SOL 2ML OS ONE; -PROPARACAINE 0.5% OPHTH SOL 15ML OD ONE; +PROPARACAINE 0.5% OPHTH SOL 15ML OS ONE; -TROPICAMIDE 1% OPHTH SOLN 2ML OD ONE; +TROPICAMIDE 1% OPHTH SOLN 2ML OS ONE
[2019-04-27] MEDS ORDERED: fentaNYL 100 MCG/2 ML INJECTION (J3010) As Ordered ONE (12:19)
[2019-04-27] MEDS ORDERED: MIDAZOLAM INJ 2 MG/2 ML VIAL (J2250) As Ordered ONE (12:19)
[2019-04-27 13:27] VITALS: BP 122/81
--- NOTE | 2019-04-28 09:58 | RO ---
DATE OF PROCEDURE: 04/27/2019 PREOPERATIVE DIAGNOSES: 1. Visually significant nuclear sclerotic cataract left eye. 2. Primary open angle glaucoma, moderate stage. POSTOPERATIVE DIAGNOSES: 1. Visually significant nuclear sclerotic cataract left eye. 2. Primary open angle glaucoma, moderate stage. PROCEDURE: 1. Cataract extraction with use of phacoemulsification and placement of intraocular lens, AU00T0, 18.5 D, left eye. 2. Transluminal dilation with ab interno trabeculotomy, left eye, 180 degree viscodilation and goniotomy SURGEON: Ward Branham DO MUNICIPAL ENGINEER: None. ANESTHESIA: Local with monitored anesthesia care (MAC). COMPLICATIONS: None. POSTOPERATIVE CONDITION: Stable. INDICATIONS FOR SURGERY: 1. Blurred vision affecting patients activities of daily living. DESCRIPTION OF PROCEDURE: The patient was seen in the preoperative area and properly identified. The correct operative eye was identified and marked. The patient received topical anesthetic, antibiotics, and topical dilating drops. The patient was then transferred to the operating room. The correct side was re-identified, and a time-out was performed. The eye was prepped and draped in a sterile fashion. The eyelids were isolated with Tegaderm tape, and the lids were held open with an adjustable speculum. A 1.0 mm paracentesis incision was made. Intraocular preservative-free Shugarcaine was then injected into the anterior chamber. Viscoelastic was then injected into the anterior chamber through the paracentesis. Using a 2.4 mm sharp-tipped keratome, the anterior chamber was entered via a temporal clear cornea incision. A continuous curvilinear capsulorrhexis was created with Utrata forceps. Hydrodissection was performed with balanced salt solution (BSS) on a blunt cannula until the nucleus was able to rotate freely. The crystalline lens was phacoemulsified and aspirated. Irrigation/aspiration was used to remove the cortical material. Cohesive viscoelastic was placed into the capsular bag to deepen it. The implant was placed into the capsular bag and allowed to unfold. Placement was confirmed by visualizing the anterior capsulorrhexis. The head was untaped, the microscope was rotated to 45 degrees. Viscoelastic was placed in the eye and onto of the cornea. The OMNI was placed in the anterior chamber and a gonioprism was used to visualize the angle. The catheter was fed, then retracted and the refed into the canal. A goniotomy was performed. There was minimal bleeding, the head was returned face up and microscope back to 0 degrees. Irrigation/aspiration was used to remove the viscoelastic. The clear corneal incision was hydrated with BSS on a blunt cannula. The lens was well positioned. The incisions were then tested for leaks and found to be negative. The eye was then palpated for appropriate pressure and adjusted accordingly with BSS. The eyelid speculum was then carefully removed. A shield was placed over the eye. The patient tolerated the procedure well and was discharged to the recovery unit in a stable condition. JENNIFER
== END 2019-04-27 13:42 | disposition home or self-care (01) ==
LOC: M SDC 08:16
PROVIDERS: ATTEND Ophthalmology
DX: H25.12 Age-related nuclear cataract, left eye (principal); H40.1122 Primary open-angle glaucoma, left eye, moderate stage; I48.91 Unspecified atrial fibrillation; I10 Essential (primary) hypertension; E78.5 Hyperlipidemia, unspecified; E11.9 Type 2 diabetes mellitus without complications; M10.9 Gout, unspecified; K21.9 Gastro-esophageal reflux disease without esophagitis; G47.30 Sleep apnea, unspecified; Z95.0 Presence of cardiac pacemaker; Z79.01 Long term (current) use of anticoagulants; Z79.899 Other long term (current) drug therapy; Z88.8 Allergy status to other drugs, medicaments and biological substances
CPT/HCPCS: 65820; 66174; 66984; J2250; J3010; V2632

== ENCOUNTER → 2019-05-03 | Outpatient (CLI) | payer MEDICARE, OTHER ==
[~2019-05-03] MED LIST changes: -BALANCED SALT IRRIGATION SOLUTION 500ML BAG (FOR OR EYE MACHINE) As Ordered ONE; -DUOVISC (0.50ML VISCOAT/0.55ML PROVISC) OPHTH KIT As Ordered ONE; -LIDOCAINE 0.75%/EPINEPHRINE 0.025% IN BSS 0.8ML SYR INTRACAMERAL--OR ONLY As Ordered ONE; -OFLOXACIN 0.3 % (OCUFLOX) OPTH SOL 5ML OS ONE; -PHENYLEPHRINE 2.5% OPHTH SOL 2ML OS ONE; -POVIDONE-IODINE 5% OPHTH PREP SOL 30ML As Ordered ONE; -PROPARACAINE 0.5% OPHTH SOL 15ML OS ONE; -TROPICAMIDE 1% OPHTH SOLN 2ML OS ONE
--- NOTE | 2019-05-03 15:54 | REP ---
CT abdomen and pelvis without IV or oral contrast: History: Ventral hernia. No comparison CT study. CT findings: Preliminary digital meat press operator radiograph demonstrates clips in the gallbladder fossa and a prosthetic right hip. The lung bases are clear on axial CT images. The liver and spleen are normal in size and homogeneous in texture. No adrenal lesion is seen. No abnormality is noted in the pancreas. There are clips in the gallbladder fossa. It appears that the patient is also status post right hemicolectomy with ileotransverse anastomosis. There is extensive left colonic diverticulosis without CT evidence of diverticulitis. Dystrophic calcifications are seen in the prostate. Urinary bladder and seminal vesicles are unremarkable. 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 In the central abdominal, there is a complex ventral hernia with multiple anterior abdominal wall defects transmitting lobules of omental fat. The largest of several abdominal wall defect measures 2.8 cm in greatest transverse dimension by 2.1 cm. No bony destructive lesion is seen. Impression: Complex ventral hernia in the supraumbilical region transmitting omental fat through several abdominal wall defects. There is midline incisional calcification above this. The patient is status post cholecystectomy and right colectomy. Left colonic diverticulosis. Electronically Signed by Sathish Pena MD 05/03/2019 04:59 P
== END ==
LOC: M RAD 14:55
PROVIDERS: ATTEND Surgery
DX: K43.9 Ventral hernia without obstruction or gangrene (principal)

== ENCOUNTER 2019-07-04 11:56 | Day surgery (SDC) | payer MEDICARE, OTHER ==
[~2019-07-04] VITALS: Ht 175.3 cm; Wt 118.0 kg
[~2019-07-04 11:56] MED LIST changes: -BISO10TA10 PO; +BISO10TA14 PO; +BISO5TAB14 PO; -BISO5TAB9 PO; +LR 1,000 ML IV ONE; +OMEP1CAP73 PO; -OMEP20CA4 PO; +ceFAZolin SOD 2 GM in IV 1 EA IV ONE
[2019-07-04] MEDS ORDERED: BUPIVACAINE LIPOSOME/PF 1.3% 20ML VIAL (13.3MG/ML)(EXPAREL)(C9290 PER1MG) As Ordered ONE (15:03)
[2019-07-04] MEDS ORDERED: BUPIVACAINE HCL 0.25% 30 ML VIAL As Ordered ONE (15:03)
[2019-07-04] MEDS ORDERED: fentaNYL 250 MCG/5 ML INJECTION (J3010) As Ordered ONE (15:52)
[2019-07-04] MEDS ORDERED: ONDANSETRON 4MG/2ML VIAL (J2405) As Ordered ONE (15:52)
[2019-07-04] MEDS ORDERED: LIDOCAINE 2% INJ 100 MG/5 ML SDV (FOR ANES.) As Ordered ONE (15:52)
[2019-07-04] MEDS ORDERED: ROCURONIUM BROMIDE 50 MG/5 ML VIAL As Ordered ONE ×2 (15:52→19:48)
[2019-07-04] MEDS ORDERED: SUGAMMADEX SODIUM 500 MG/5 ML VIAL (BRIDION) As Ordered ONE (15:52)
[2019-07-04] MEDS ORDERED: propofoL 200 MG/20 ML VIAL As Ordered ONE (15:52)
[2019-07-04] MEDS ORDERED: dexameTHASONE 4 MG/ML 1ML VIAL (J1100) As Ordered ONE (15:52)
[2019-07-04] MEDS ORDERED: MIDAZOLAM INJ 2 MG/2 ML VIAL (J2250) As Ordered ONE (15:52)
[2019-07-04] MEDS ORDERED: METOCLOPRAMIDE INJ 10MG/2ML VIAL (J2765) As Ordered ONE (15:52)
[2019-07-04] MEDS ORDERED: LACRILUBE (AKWA TEARS) OPHTH OINT 3.5 GM As Ordered ONE (15:53)
[2019-07-04] MEDS ORDERED: HYDROmorphone HCL 2 MG/ML 1ML VIAL (J1170) As Ordered ONE (19:48)
[2019-07-04] MEDS ORDERED: fentaNYL 100 MCG/2 ML INJECTION (J3010) As Ordered ONE (20:24)
[2019-07-04] MEDS ORDERED: METOCLOPRAMIDE INJ 10MG/2ML VIAL (J2765) IV PRN (20:30)
[2019-07-04] MEDS ORDERED: ACETAMINOPHEN TAB 650MG DOSE (2X325MG) PO PRN (20:30)
[2019-07-04] MEDS ORDERED: CEFAZOLIN SOD IV ONE (20:30)
[2019-07-04] MEDS ORDERED: MORPHINE 2 MG/ML 1ML VIAL (J2270) IV PRN (20:30)
[2019-07-04] MEDS ORDERED: NORCO, ANEXSIA 5/325MG TABLET (HYDROcodone/ACETAMINOPHEN) PO PRN (20:30)
[2019-07-04] MEDS ORDERED: LR 1,000 ML IV SCH ×2 (20:30→21:00)
[2019-07-04] MEDS ORDERED: KETOROLAC 30 MG/ML VIAL (J1885) IV PRN ×2 (20:30→21:00)
[2019-07-04] MEDS: fentaNYL 100 MCG/2 ML INJECTION (J3010) IV PRN ×4 (20:30→20:55)
[2019-07-04] MEDS ORDERED: DILUENT IV ONE (20:30)
[2019-07-04] MEDS ORDERED: ONDANSETRON 4MG/2ML VIAL (J2405) IV PRN ×2 (20:30)
[2019-07-04] MEDS ORDERED: PERCOCET 5MG/325MG TAB As Ordered ONE (20:38)
[2019-07-04] MEDS ORDERED: KETOROLAC 30 MG/ML VIAL (J1885) As Ordered ONE (20:38)
[2019-07-04] MEDS: PERCOCET 5MG/325MG TAB PO PRN ×2 (20:42→21:25)
[2019-07-04 22:00] VITALS: BP 148/79
[2019-07-04 22:30] VITALS: BP 149/79
[2019-07-04] MEDS: LR 1,000 ML IV SCH (22:58)
[2019-07-04] MEDS: CARVedilol 6.25 MG TAB PO SCH (22:59)
[2019-07-04 23:30] VITALS: BP 152/75
[2019-07-05] VITALS (7 sets, daily range): BP systolic 114–148; BP diastolic 60–79
[2019-07-05] MEDS: LR 1,000 ML IV SCH (03:46)
[2019-07-05 06:16] LABS: BASO # 0.1 10^3/uL (0.0-0.2); BASO % 0.6 % (0.0-1.0); EOS % 0.2 % (0.0-3.0); HEMATOCRIT 43.9 % (42.0-52.0); HEMOGLOBIN 14.7 g/dl (13.5-17.5); LYMPH # 0.9 10^3/uL (1.5-5.0); LYMPH % 7.3 % (24.0-44.0); MEAN CORPUSCULAR HEMOGLOBIN 31.1 pg (27.0-33.0); MEAN CORPUSCULAR HGB CONC 33.5 g/dl (32.0-36.5); MONO # 1.2 10^3/uL (0.0-0.8); MONO % 9.8 % (0.0-5.0); NEUTROPHILS # 10.2 10^3/uL (1.5-8.5); NEUTROPHILS % 81.7 % (36.0-66.0); PLATELET COUNT, AUTOMATED 206 10^3/uL (150-450); RED BLOOD COUNT 4.72 10^6/uL (4.30-6.10); WHITE BLOOD COUNT 12.5 10^3/uL (4.0-10.0)
[2019-07-05 06:51] LABS: CALCIUM LEVEL 8.3 MG/DL (8.8-10.2); CREATININE FOR GFR 1.53 MG/DL (0.70-1.30); GLOMERULAR FILTRATION RATE 47.3 (>42); POTASSIUM SERUM 5.1 MEQ/L (3.5-5.1)
[2019-07-05] MEDS: CARVedilol 6.25 MG TAB PO SCH ×2 (09:05→20:52)
[2019-07-05] MEDS: allopurinoL 300 MG TAB PO SCH (09:05)
[2019-07-05] MEDS: OMEPRAZOLE 20 MG CAP PO SCH (09:05)
[2019-07-05] MEDS: lisinopriL 20 MG TAB PO SCH (09:05)
[2019-07-05] MEDS: CHLORTHALIDONE 12.5MG PER 1/2 TABLET PO SCH (09:26)
[2019-07-05] MEDS: metFORMIN XR 750 MG TAB PO SCH (09:26)
[2019-07-05] MEDS: PERCOCET 5MG/325MG TAB PO PRN ×2 (11:28→19:55)
--- NOTE | 2019-07-05 14:53 | IPN ---
DATE: 07/05/2019 HISTORY: Patient is now postop day #1 from a robotic-assisted laparoscopic repair of multiple incarcerated ventral incisional hernias. His surgery concluded approximately 8 p.m. last night. He has done well. He does complain of some pain along his midline, particularly at the area just above his umbilicus where his largest hernia defect was. He has tolerated some liquids and has voided. He reports that he has not been out of bed to ambulate any significant amount. Vital signs: Show that he has been afebrile since surgery. Pulse is in the low 60s, and his blood pressure is excellent. Intake and output shows that yesterday he had 1945 in with 200 out. PHYSICAL EXAM: Patient is lying in the hospital bed, propped up about 30 degrees. He is alert and oriented. He appears fairly comfortable at rest. Heart exam shows a regular rate and rhythm. The abdomen is obese and shows active bowel sounds on auscultation. His incisions are dressed, and the dressings are dry. He does have some bulging at the site of his largest hernia slightly above and to the right of the umbilicus. The abdomen is without any undue tenderness. Laboratory studies include a CBC showing a white count of 12, hemoglobin 15, hematocrit 44, and a platelet count of 206,000. Differential count shows 82% neutrophils, 7% lymphocytes, and 10% monocytes. Chemistry profile shows a sodium of 138, potassium 5.1, chloride 103, CO2 of 27, BUN of 27, creatinine 1.5, and a glucose of 185. IMPRESSION: Patient appears to be doing fairly well after surgery. He has taken some clear liquids overnight and this morning. He has not yet been out of bed to ambulate significantly. PLAN: Patient will continue on his liquid diet which can be advanced as tolerated. I will saline lock his intravenous (IV). I encouraged him to be up ambulating with assist, if necessary. I will reassess him later in the day and see if he is at a point for possible discharge or if he will need to be converted to an admission and continue here in the hospital. JENNIFER
[2019-07-06] MEDS: PERCOCET 5MG/325MG TAB PO PRN ×3 (00:32→08:30)
[2019-07-06 06:00] VITALS: BP 149/83
[2019-07-06] MEDS: allopurinoL 300 MG TAB PO SCH (08:30)
[2019-07-06] MEDS: lisinopriL 20 MG TAB PO SCH (08:30)
[2019-07-06 08:31] VITALS: BP 149/83
[2019-07-06] MEDS: CARVedilol 6.25 MG TAB PO SCH (08:31)
[2019-07-06] MEDS: metFORMIN XR 750 MG TAB PO SCH (08:31)
[2019-07-06] MEDS: CHLORTHALIDONE 12.5MG PER 1/2 TABLET PO SCH (08:31)
[2019-07-06] MEDS: OMEPRAZOLE 20 MG CAP PO SCH (08:32)
--- NOTE | 2019-07-06 08:33 | RO ---
DATE OF PROCEDURE: 07/04/2019 PREOPERATIVE DIAGNOSIS: Multiple ventral incisional hernias. POSTOPERATIVE DIAGNOSIS: Multiple incarcerated ventral incisional hernias. PROCEDURE PERFORMED: Robotic-assisted laparoscopic reduction and repair of multiple incarcerated ventral incisional hernias with Parietex mesh. The mesh utilized was two separate pieces of 10 x 15 cm rectangular Parietex mesh. These were reference code [id number] and both pieces of mesh were lot number [id number]. SURGEON: Dr. Rodrigo Chris BASS SINGER: ANESTHESIA: General. INDICATIONS FOR THE PROCEDURE: The patient is a 73-year-old man who is many years postop from a right hemicolectomy done through a long midline incision. His wound was closed with a looped #0 nylon suture and he has developed several hernia defects along this. By CT scan, he has at least five defects, the largest of which is near the umbilicus and approximately 3.5-4 cm in diameter. These appear to contain fatty tissue. He is now for robotic-assisted laparoscopic repair of his mild multiple hernias. OPERATIVE PROCEDURE: The patient was brought to the operating room and placed on the table in a supine position. He was placed under general endotracheal anesthesia. A Soto catheter was inserted. Thromboembolic deterrent stockings (TEDS) and sequentials were utilized. The patient's abdomen was prepped and draped in a sterile fashion. Initial entry into the abdomen was attempted in the left mid abdomen laterally. 0.25% Marcaine was infiltrated at the trocar sites as needed. Initially, a short transverse incision was made and a Veress needle was inserted. I attempted to insufflate, but pressures were high, so the Veress needle was removed. A small incision was made high in the left upper quadrant to try to avoid adhesions and again with insertion of the Veress needle pressures were high. Therefore, a third site was selected in the left lower quadrant slightly more medial and on this occasion there was an excellent hanging drop test and the abdomen was insufflated with carbon dioxide gas. Once the abdomen was insufflated, an 8 mm port was placed over a 5 mm scope and advanced through the abdominal wall without difficulty. Initial examination showed some extensive adhesions along the midline of the abdomen extending all the way from the epigastrium down into the lower abdomen. A port was placed through the left mid abdominal lateral site. A third 8 mm port was placed in the left upper quadrant laterally. The patient was tilted to level the abdomen slightly. He was also rolled slightly to the right. The da Bill Xi robot was then brought in from the right side of the patient and docked to the camera port. Targeting took place and the additional arms were docked. A bipolar grasper and the cauterizing scissors were inserted and I moved to the control console to begin the procedure. Initially, I started by taking down the adhesions of the omentum to the anterior abdominal wall. The omentum was densely adherent along the midline to any preperitoneal fat that was present. Some adhesions between the omentum and the abdominal wall could be lysed allowing the omentum to fall way slightly and as we approached the midline I began the peritoneum and the preperitoneal fat with the attached omentum away from the fascia of the abdominal wall. This dissection began superiorly and worked inferiorly and then worked from [id number] across the midline. As the dissection took place, the patient was identified as having multiple hernias, perhaps 15 or even more, including the defects down to about a centimeter in size. There was one larger defect at the superior end of his midline incision which was perhaps 2 centimeters in diameter. The largest defect was slightly above the level of the umbilicus and contained a very large amount of incarcerated omentum extending into the abdominal wall and then laterally. There was also a larger defect toward the inferior end of the midline incision which was several centimeters in diameter. There were multiple paired defects a centimeter or so in size along the middle portion of the scar where there were remnants of the looped #0 nylon suture still visible. The omentum was reduced from within the hernia defects as each was encountered. This was allowed to fall way from the abdominal wall remaining attached by the right lateral edge of the preperitoneal tissues which were left attached to the abdominal wall. I spent a few minutes studying the multiple defects to try to arrive at the best strategy for repair. I lowered the pressure within the abdomen to 8-10 mmHg. I elected to try closing all of the defects that were larger than perhaps a centimeter to a centimeter and half and all of the smaller defects would be left unclosed to be covered by an overlying piece of mesh. Initially, the most inferior defect was closed. There was a 2 to 2.5 cm fascial defect, but also some weakness above this extending superiorly several centimeters, so this area was closed longitudinally beginning inferiorly and working superiorly to close the obvious defect and also approximate the weakened tissue superiorly. This was accomplished with a #1 Stratafix suture. A second Stratafix suture was used to close transversely the largest fascial defect which as noted was approximately 4 cm in diameter with two smaller defects to the left of this which were also incorporated into a running closure, again, with a #1 Stratafix. Finally, a third #1 Stratafix suture was used beginning superiorly to close the most superior fascial defect and then continued inferiorly closing several smaller midline defects that had been connected by dividing some small fibrous bridges between them. This was as noted closed longitudinally. Once these major defects had been closed, I selected mesh to cover the entire midline. The area to be covered was approximately 10 cm wide x 22 or more cm in length. A 10 x 15 cm rectangular Parietex patch was selected. This was inserted into the abdomen. This was inserted through a 12 mm port which had been placed through the left upper quadrant position. This was placed over the inferior aspect of the abdominal wall defects. This was sutured at the left side of the mesh at approximately the midpoint using a #2-0 V-Loc suture which was then used to suture inferiorly to the inferior end of the suture, then partially across the inferior margin and then superiorly along the midline of this piece of mesh. A second suture was inserted which was used to complete the circumferential suturing of this patch. In this manner, the patch was sutured along all edges and also down the midline along the midline of the abdomen. A second 10 x 15 cm mesh was selected and this was trimmed to 10 x 10 cm and inserted. This was sutured over the superior aspect of the exposed abdominal wall overlapping the inferior piece of mesh by about a centimeter. Again, this was sutured securely in place with #2-0 V-Loc sutures. The final application of mesh with excellent. I then reduced the abdominal pressure further. A few small bleeding points on the omentum that had been reduced from the hernias were controlled and in order to cover the mesh the matted omentum with the preperitoneal fat was folded up to the abdominal wall and sutured along the left edge of the mesh using a running #2-0 V-Loc. A final suture was placed at the inferior edge where there was some preperitoneal fat that could be closed together over the inferior portion of the mesh and then incorporated into the application of the omentum to the abdominal wall. Final inspection revealed excellent hemostasis. The superior end of the mesh was not covered, but the omentum was draped in such a way that I anticipated that with deflation of the abdomen that the bowel would be protected by this omentum interposed between the bowel and the abdominal wall. The robotic instruments were removed and the robot was undocked. I returned to the bedside. A regular laparoscope was inserted and a Ayan-Brodie device was used placed a #0 Vicryl suture in the left upper quadrant 12 mm port site. The abdomen was then deflated and the remaining ports were removed. The skin incisions were closed with buried #4-0 Vicryl and Steri-Strips. Light dressings were applied. The patient tolerated the procedure well. His Soto catheter was removed. He was awakened in the operating room, extubated and moved to the recovery room in stable condition. JENNIFER
[2019-07-06] MEDS ORDERED: PERCOCET PO (10:44)
--- NOTE | 2019-07-06 16:01 | IPN ---
DATE: 07/06/2019 HISTORY: The patient is now postop day #2 from a robotic-assisted laparoscopic repair of multiple ventral incisional hernias with mesh. He was not ambulating significantly yesterday, so he was kept overnight to encourage ambulation. He has had two bowel movements and has been moving much better since emphasizing this with him. VITAL SIGNS: Show that today he is afebrile with a pulse in the 60s and good blood pressure. Intake and output show that yesterday he had 4200 in with 300 recorded out but he had several other voids that were not measured. Physical exam the patient is sitting on the side of the bed looking quite comfortable. He is alert and oriented. Heart exam shows a regular rate and rhythm and the lungs are clear. The abdomen was mildly protuberant but soft and he has active bowel sounds. His incisions are clean and dry. IMPRESSION: The patient is doing well now 2 days postop from his repair of multiple hernias with mesh. PLAN: The patient will be discharged home. I will provide him a prescription for 20 Percocet tablets. He was advised to try to space out the timing of his pills as much as possible with each passing day. He can take a diet as tolerated. He was advised against any strenuous physical activity or lifting for probably the next 2 months. He can shower. He should follow up with me in the office in about 2 weeks. JENNIFER
== END 2019-07-06 12:28 | disposition home or self-care (01) ==
LOC: M SDC 11:56 → M MS5PR 21:25 → M SDC 07-06 12:28
PROVIDERS: ATTEND Surgery
DX: K43.0 Incisional hernia with obstruction, without gangrene (principal); I48.91 Unspecified atrial fibrillation; I10 Essential (primary) hypertension; E11.9 Type 2 diabetes mellitus without complications; E78.5 Hyperlipidemia, unspecified; G47.30 Sleep apnea, unspecified; Z95.0 Presence of cardiac pacemaker; Z79.01 Long term (current) use of anticoagulants; Z88.8 Allergy status to other drugs, medicaments and biological substances; Z79.84 Long term (current) use of oral hypoglycemic drugs; Z79.899 Other long term (current) drug therapy; Z88.1 Allergy status to other antibiotic agents
CPT/HCPCS: 36415; 49655; 80048; 85025; 96361; 96374; C1781; C9290; J0690; J1100; J1170; J1885; J2250; J2405; J2765; J3010

== ENCOUNTER → 2021-01-17 | Outpatient (CLI) | payer MEDICARE, OTHER ==
[~2021-01-17] MED LIST changes: +ALLO300T2 PO; +HYDR-3490 PO; -HYDR25TAB PO; -LISI-538 PO; -LISI20TA20 PO; +LISI20TA33 PO; +LISI20TA37 PO; +LOSA25TA13 PO; -LR 1,000 ML IV ONE; +OMEP40CA4 PO; -OMEP40CA97 PO; -ceFAZolin SOD 2 GM in IV 1 EA IV ONE
== END ==
LOC: M LABSMTC 10:14
PROVIDERS: ATTEND Anesthesiology
DX: Z01.812 Encounter for preprocedural laboratory examination (principal); Z20.822 Contact with and (suspected) exposure to COVID-19

== ENCOUNTER 2021-01-22 06:56 | Day surgery (SDC) | payer MEDICARE, OTHER ==
[~2021-01-22] VITALS: Ht 180.3 cm; Wt 111.2 kg
[~2021-01-22 06:56] MED LIST changes: +LISI20TA20 PO; -LISI20TA37 PO; -LOSA25TA13 PO; +LOSA25TA14 PO; +NS 1,000 ML IV ONE
[2021-01-22] MEDS ORDERED: LIDOCAINE 2% 100MG/5ML SDV (FOR ANES.) As Ordered ONE (07:02)
[2021-01-22] MEDS ORDERED: propofoL 200 MG/20 ML VIAL As Ordered ONE (07:02)
--- NOTE | 2021-01-22 08:39 | ROOR ---
Patient Name: Joao Seay Procedure Date: 01/22/2021 8:01 AM Date of : 1945 Age: 75 Room: [facility] Gender: Male Note Status: Finalized Procedure: Colonoscopy to Anastomosis + Cold Snare Polypectomy + Hemoclips Indications: High risk colon cancer surveillance: Personal history of colonic polyps Providers: Charles Branham MD Referring MD: Calvin Barragan MD Requesting Provider: Medicines: Monitored Anesthesia Care Complications: No immediate complications. Procedure: Pre-Anesthesia Assessment: - The heart rate, respiratory rate, oxygen saturations, blood pressure, adequacy of pulmonary ventilation, and response to care were monitored throughout the procedure. The Colonoscope was introduced through the anus and advanced to the ileocolonic anastomosis. The colonoscopy was performed without difficulty. The patient tolerated the procedure well. The quality of the bowel preparation was excellent. Findings: The perianal and digital rectal examinations were normal. Multiple sessile polyps were found at 45 cm proximal to the anus. The polyps were medium in size. These polyps were removed with a cold snare. Resection and retrieval were complete. To prevent bleeding after the polypectomy, four hemostatic clips were successfully placed. There was no bleeding at the end of the procedure. The exam was otherwise without abnormality. Impression: - Multiple medium polyps at 45 cm proximal to the anus, removed with a cold snare. Resected and retrieved. Clips were placed. - The examination was otherwise normal. - The exam was otherwise normal to the cecum. Recommendation: - Patient has a contact number available for emergencies. The signs and symptoms of potential delayed complications were discussed with the patient. Return to normal activities tomorrow. Written discharge instructions were provided to the patient. - High fiber diet. - Discharge patient to home. - Continue present medications. - Await pathology results. - Telephone GI clinic for pathology results in 1 week. - Repeat colonoscopy for surveillance based on pathology results. - Return to referring physician. - The findings and recommendations were discussed with the patient's family. Procedure Code(s): --- Professional --- 45023, Colonoscopy, flexible; with removal of tumor(s), polyp(s), or other lesion(s) by snare technique Diagnosis Code(s): --- Professional --- Z86.010, Personal history of colonic polyps K63.5, Polyp of colon CPT copyright 2019 [employer]. All rights reserved. The codes documented in this report are preliminary and upon agent licensing clerk review may be revised to meet current compliance requirements. Charles Branham MD Charles Branham MD 01/22/2021 8:39:30 AM Electronically signed by Charles Branham MD Number of Addenda: 0 Note Initiated On: 01/22/2021 8:01 AM Estimated Blood Loss: Estimated blood loss: none.
[2021-01-22 09:05] VITALS: BP 156/67
== END 2021-01-22 09:12 | disposition home or self-care (01) ==
LOC: M OPP 06:56
PROVIDERS: ATTEND Internal Medicine Gastroenterology
DX: Z12.11 Encounter for screening for malignant neoplasm of colon (principal); Z86.010 Personal history of colon polyps; K63.5 Polyp of colon; E11.9 Type 2 diabetes mellitus without complications; I48.91 Unspecified atrial fibrillation; Z95.0 Presence of cardiac pacemaker; Z79.84 Long term (current) use of oral hypoglycemic drugs; Z79.899 Other long term (current) drug therapy; Z88.8 Allergy status to other drugs, medicaments and biological substances

== ENCOUNTER → 2021-06-11 | Outpatient (CLI) | payer MEDICARE, OTHER ==
[~2021-06-11] MED LIST changes: -NS 1,000 ML IV ONE
== END ==
LOC: M LABSMTC 09:59
PROVIDERS: ATTEND Anesthesiology
DX: Z01.818 Encounter for other preprocedural examination (principal); Z11.52 Encounter for screening for COVID-19

== ENCOUNTER 2021-06-16 12:00 | Day surgery (SDC) | payer MEDICARE, OTHER ==
[~2021-06-16] VITALS: Ht 180.3 cm; Wt 111.0 kg
[~2021-06-16 12:00] MED LIST changes: -LISI20TA20 PO; +LISI20TA37 PO; +LOSA25TA13 PO; -LOSA25TA14 PO; +NS 1,000 ML IV SCH
[2021-06-16 15:10] VITALS: BP 165/77
== END 2021-06-16 15:22 | disposition home or self-care (01) ==
LOC: M OPP 12:00
PROVIDERS: ATTEND Internal Medicine Gastroenterology
DX: K63.5 Polyp of colon (principal); K64.0 First degree hemorrhoids; K57.30 Diverticulosis of large intestine without perforation or abscess without bleeding; Z86.03 Personal history of neoplasm of uncertain behavior; Z79.84 Long term (current) use of oral hypoglycemic drugs; Z79.899 Other long term (current) drug therapy; Z88.8 Allergy status to other drugs, medicaments and biological substances; Z87.891 Personal history of nicotine dependence

== ENCOUNTER 2025-06-09 13:10 | Emergency (ER) | payer MEDICARE, OTHER ==
[~2025-06-09] VITALS: Ht 180.3 cm; Wt 116.2 kg
[~2025-06-09 13:10] MED LIST changes: -K-TA10TA PO; -NS 1,000 ML IV SCH; +POTA-164 PO
[2025-06-09 14:40] LABS: PLATELET COUNT, AUTOMATED 226 10^3/uL (150-450)
[2025-06-09 15:04] LABS: CALCIUM LEVEL 8.8 MG/DL (8.3-10.6); CARBON DIOXIDE LEVEL 31.0 MMOL/L (20-31); CHLORIDE LEVEL 100.0 MMOL/L (98-107); CREATININE FOR GFR 0.95 MG/DL (0.70-1.30); GLOMERULAR FILTRATION RATE 80.4 (>35); POTASSIUM SERUM 4.1 MMOL/L (3.5-5.1); SODIUM LEVEL 140.0 MMOL/L (136-145)
[2025-06-09] MEDS ORDERED: ANUS25SU PR (15:11)
[2025-06-09 15:26] VITALS: BP 160/74; TEMP 97.9; O2SAT 95
== END 2025-06-09 15:26 | disposition home or self-care (01) ==
LOC: M ED 13:10
DX: K64.8 Other hemorrhoids (principal); I48.91 Unspecified atrial fibrillation; I10 Essential (primary) hypertension; K21.9 Gastro-esophageal reflux disease without esophagitis; Z87.891 Personal history of nicotine dependence; Z88.1 Allergy status to other antibiotic agents; Z88.8 Allergy status to other drugs, medicaments and biological substances; Z79.84 Long term (current) use of oral hypoglycemic drugs; Z79.01 Long term (current) use of anticoagulants; Z79.899 Other long term (current) drug therapy